=== PATIENT | female | born 1970 | race Caucasian/White ===

== ENCOUNTER 2017-12-31 18:41 | Emergency (ER) | payer OTHER ==
[~2017-12-31] VITALS: Ht 162.6 cm; Wt 53.0 kg
[~2017-12-31 18:41] MED LIST: GABA400C5 PO; NAPR500 PO; SULF1TAB47 PO
[2017-12-31 18:59] VITALS: BP 131/62; PULSE 100; RESP 16; TEMP 99.5; O2SAT 99
[2017-12-31] MEDS ORDERED: TIZA4CAP3 PO (20:24)
[2017-12-31] MEDS ORDERED: BUTA1CAP PO (20:24)
[2017-12-31] MEDS ORDERED: GABA600T PO (20:24)
[2017-12-31] MEDS ORDERED: TOPI25TA7 PO (20:24)
[2017-12-31] MEDS ORDERED: CLON1TAB PO (20:24)
--- NOTE | 2017-12-31 20:44 | PD ---
HPI Chief Complaint: Injury Time Seen by Provider: 20:25 Travel History International Travel<30 days: No Contact w/Intl Traveler<30days: No Traveled to known affect area: No History of Present Illness HPI 47-year-old female that presents to the ED for evaluation of injury to her third and fourth toes of the left foot. Patient has bruising and swelling in the area. Per patient is happened today less than 2 hours ago when she was trying to fink to the door and accidentally hit it on and on movement. Per patient both of her toes twisted and she heard a "crack". Per patient she's been having severe pain since. Per patient the pain is 8 out of 10. No previous injuries. No urinary or bowel movement issues. No head injury or loss of consciousness. No blood thinner use. Denies any other injury. No open cuts. PFSH Past Medical History Fibromyalgia: Yes Medical other: Yes (NEUROPATHY) Migraines: Yes ?: Not LMP: 12/18/17 Social History Alcohol Use: No Tobacco Use: No Substance Use: No Allergies-Medications (Allergen,Severity, Reaction): Coded Allergies: clindamycin (Unverified Allergy, Severe, 12/31/17) metronidazole (Unverified Allergy, Severe, 12/31/17) penicillin G (Unverified Allergy, Severe, 12/31/17) tramadol (Unverified Allergy, Severe, 12/31/17) Reported Meds & Prescriptions Reported Meds & Active Scripts Active Reported Fioricet (Ngoxjuwmcw-Jspbjjrlhdmqe-Aomsxrrj) 50-300-40 Mg Cap 1 Cap PO Q4H PRN Clonazepam 1 Mg Tab 1 Mg PO HS Tizanidine (Tizanidine HCl) 4 Mg Cap 16 Mg PO DAILY Topiramate 25 Mg Tab 15 Mg PO DAILY Gabapentin 600 Mg Tab 600 Mg PO BID Review of Systems Except as stated in HPI: all other systems reviewed are Neg Physical Exam Narrative GENERAL: SKIN: Warm and dry. HEAD: Atraumatic. Normocephalic. EYES: Pupils equal and round. No scleral icterus. No injection or drainage. ENT: No nasal bleeding or discharge. Mucous membranes pink and moist. NECK: Trachea midline. No JVD. CARDIOVASCULAR: Regular rate and rhythm. RESPIRATORY: No accessory muscle use. Clear to auscultation. Breath sounds equal bilaterally. GASTROINTESTINAL: Abdomen soft, non-tender, nondistended. Hepatic and splenic margins not palpable. MUSCULOSKELETAL: Extremities without clubbing, cyanosis, or edema. No obvious deformities. Full range of motion of the upper and lower extremities bilaterally with exception of the toes on the left foot. Patient has pain on the second and third toe. I cannot get close to it secondary to severe pain. Patient does have significant bruising and swelling on the MIP joint of the toes. Good capillary refill. 2+ pulses bilaterally. NEUROLOGICAL: Awake and alert. No obvious cranial nerve deficits. Motor grossly within normal limits. Five out of 5 muscle strength in the arms and legs. Normal speech. PSYCHIATRIC: Appropriate mood and affect; insight and judgment normal. Data Data Last Documented VS Vital Signs Date Time Temp Pulse Resp B/P (MAP) Pulse Ox O2 Delivery O2 Flow Rate FiO2 12/31/17 18:59 99.5 100 16 131/62 (85) 99 Orders Orders Foot, Complete ([id number]) (12/31/17 ) Ketorolac Inj (Toradol Inj) (12/31/17 20:45) Acetamin-Hydrocod 325-5 Mg (Excello 5-325 (12/31/17 20:45) MDM Medical Decision Making Medical Screen Exam Complete: Yes Emergency Medical Condition: Yes Medical Record Reviewed: Yes Differential Diagnosis Toe fracture versus foot fracture versus contusion Narrative Course 47-year-old female that presents to the ED for evaluation of toe injury. Patient was properly examined and was found to have signs and symptoms concerning for fracture. X-rays were ordered. Patient was given pain medications. Case will be signed out to my attending pending disposition and plan. Dawood Martinez Dec 31, 2017 20:44
[2017-12-31] MEDS ORDERED: KETOROLAC TROMETHAMINE 60 MG/2 ML (IM) VIAL IM ONE (20:45)
[2017-12-31] MEDS ORDERED: ACETAMINOPHEN/HYDROcodone 325 MG/5 MG TAB PO ONE (20:45)
[2017-12-31] MEDS ORDERED: NORC5TAB PO (21:27)
--- NOTE | 2017-12-31 21:27 | PD ---
Physical Exam Date Seen by Provider: Dec 31, 2017 Narrative Patient presents for evaluation of an injury to her left foot. She inadvertently kicked a piece of furniture which caused her toes to forcibly split apart. She comes in with pain at the base of her third toe. Data Data Last Documented VS Vital Signs Date Time Temp Pulse Resp B/P (MAP) Pulse Ox O2 Delivery O2 Flow Rate FiO2 12/31/17 18:59 99.5 100 16 131/62 (85) 99 Orders Orders Foot, Complete ([id number]) (12/31/17 ) Ketorolac Inj (Toradol Inj) (12/31/17 20:45) Acetamin-Hydrocod 325-5 Mg ([place] 5-325 (12/31/17 20:45) MDM Supervised Visit with EVERT: Yes Narrative Course I, Dr. Parra, have reviewed the advance practice practitioner's documentation and am in agreement, met with the patient face to face, made the diagnosis, and the medical decision making was done by me. *My assessment and Findings: There is some bruising and tenderness at the base of the left third toe. There is no gross deformity. X-ray to my interpretation shows a spiral, nondisplaced fracture of the proximal phalanx of the left third toe. Patient will be discharged home with a cast shoe and crutches. Ice and elevation. [place] as needed for pain. Diagnosis Primary Impression: Fracture of third toe, left, closed Qualified Codes: S92.502A - Displaced unspecified fracture of left lesser toe( s), initial encounter for closed fracture Patient Instructions: General Instructions, RICE Therapy (ED), Toe Fracture (DC ) Med/Other Pt SpecificInfo: Prescription(s) given Scripts Hydrocodone-Acetaminophen ([place]) 5 Mg-325 Mg Tab 1 TAB PO Q4H Y for PAIN, #12 TAB 0 Refills Prov: Yue Parra MD 12/31/17 Disposition: 01 DISCHARGE HOME Condition: Stable Yue Parra MD Dec 31, 2017 21:27
[2017-12-31 21:55] VITALS: RESP 16
--- NOTE | 2017-12-31 22:01 | RADRPT ---
EXAM DATE/TIME: 12/31/2017 20:57 [facility] COMPARISON: No previous studies available for comparison. INDICATIONS : Left foot, third digit pain with bruising. MEDICAL HISTORY : None. SURGICAL HISTORY : None. ENCOUNTER: Initial ACUITY: 1 day PAIN SCORE: 10/10 LOCATION: Left foot FINDINGS: There is an acute oblique fracture involving the midshaft of the left third proximal phalanx. CONCLUSION: Acute oblique fracture involving the midshaft of the left third proximal phalanx. Angel Norris MD on December 31, 2017 at 21:57 Board Certified Radiologist. This report was verified electronically.
== END 2017-12-31 22:00 | disposition home or self-care (01) ==
LOC: PHED 18:41 → PHEFT 22:00
DX: S92.512A Displaced fracture of proximal phalanx of left lesser toe(s), initial encounter for closed fracture (principal); W22.8XXA Striking against or struck by other objects, initial encounter; Y93.89 Activity, other specified
CPT/HCPCS: 73630; 96372; 99283; E0113; J1885

== ENCOUNTER 2018-03-26 16:24 | Emergency (ER) | payer OTHER ==
[~2018-03-26] VITALS: Ht 157.5 cm; Wt 55.5 kg
[~2018-03-26 16:24] MED LIST changes: +BUTA1CAP PO; +CLON1TAB PO; -GABA400C5 PO; +GABA600T PO; -NAPR500 PO; +NORC5TAB PO; -SULF1TAB47 PO; +TIZA4CAP3 PO; +TOPI25TA7 PO
[2018-03-26 16:30] VITALS: BP 148/91; PULSE 97; RESP 16; TEMP 98.6; O2SAT 100
[2018-03-26] MEDS ORDERED: IBUPROFEN 600 MG TAB PO ONE (17:15)
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
== END 2018-03-26 18:05 | disposition home or self-care (01) ==
LOC: PHEFT 16:24
DX: S63.502A Unspecified sprain of left wrist, initial encounter (principal); Y04.8XXA Assault by other bodily force, initial encounter; M79.7 Fibromyalgia
CPT/HCPCS: 73110; 99283; L3908